=== PATIENT | male | born 1955 | race African-American/Black ===

== ENCOUNTER 2018-12-14 09:30 | Day surgery (SDC) | payer MEDICAID ==
[~2018-12-14] VITALS: Ht 182.9 cm; Wt 95.7 kg
[2018-12-14] MEDS ORDERED: LACTATED RINGERS 1,000 ML IV SCH (10:40)
[2018-12-14 11:06] LABS: BASOPHILS % 0.4 % (0.0-2.0); EOSINOPHILS % 0.8 % (0.0-5.0); HEMATOCRIT. 43.3 % (42.0-52.0); HEMOGLOBIN. 14.5 g/dL (14.0-18.0); LYMPHOCYTES % 26.9 % (20.0-50.0); MEAN CORPUSCULAR HEMOGLOBIN 32.6 pg (28.0-32.0); MEAN CORPUSCULAR VOLUME 97.3 fL (80.0-94.0); MEAN PLATELET VOLUME 7.7 fl (7.4-10.4); MONOCYTES % 6.1 % (2.0-8.0); NEUTROPHILS % 65.8 % (40.0-76.0); PLATELET 225 x1000/uL (130-400); RED BLOOD CELL COUNT 4.45 mill/uL (4.7-6.1); RED CELL DISTRIBUTION WIDTH 15.6 % (11.6-14.6)
[2018-12-14 11:11] LABS: CHLORIDE 99 mEq/L (98-107)
[2018-12-14] MEDS ORDERED: ASPI-1393 PO (12:08)
[2018-12-14] MEDS ORDERED: MIRT-91 PO (12:08)
[2018-12-14] MEDS ORDERED: DOCU-286 PO (12:08)
[2018-12-14] MEDS ORDERED: ALBU6.7H9 IH (12:08)
[2018-12-14] MEDS ORDERED: MORP15TA67 PO (12:08)
[2018-12-14] MEDS ORDERED: ALLO100T PO (12:08)
[2018-12-14] MEDS ORDERED: NAPR-1176 PO (12:08)
[2018-12-14] MEDS ORDERED: HYDR-4009 PO (12:08)
[2018-12-14] MEDS ORDERED: OMEP40CA34 PO (12:08)
[2018-12-14] MEDS ORDERED: FLUT1AER IH (12:08)
[2018-12-14] MEDS ORDERED: PROPOFOL 200MG/20ML VIAL IV ONE (14:13)
[2018-12-14] MEDS ORDERED: LIDOCAINE HCL/PF 1% 10 MG/ML 5ML VIAL ONE (14:13)
[2018-12-14] MEDS ORDERED: MIDAZOLAM HCL 5 MG/5 ML VIAL ONE (14:13)
== END 2018-12-14 15:40 | disposition home or self-care (01) ==
LOC: OR 09:30
PROVIDERS: ATTEND Internal Medicine Gastroenterology
DX: Z12.11 Encounter for screening for malignant neoplasm of colon (principal); K64.8 Other hemorrhoids; J44.9 Chronic obstructive pulmonary disease, unspecified; M06.9 Rheumatoid arthritis, unspecified; M79.7 Fibromyalgia; G47.33 Obstructive sleep apnea (adult) (pediatric); F17.210 Nicotine dependence, cigarettes, uncomplicated; E66.3 Overweight; I10 Essential (primary) hypertension; Z98.890 Other specified postprocedural states; Z79.899 Other long term (current) drug therapy; Z72.89 Other problems related to lifestyle
CPT/HCPCS: 36415; 45378; 80048; 85025; 93005; J2250; J2704; J3490